=== PATIENT | male | born 1980 | race Caucasian/White ===

== ENCOUNTER 2021-06-07 03:03 | Emergency (ER) | payer OTHER ==
[~2021-06-07] VITALS: Ht 182.9 cm; Wt 105.0 kg
[2021-06-07 03:09] VITALS: BP 142/97
--- NOTE | 2021-06-07 04:09 | NUR ---
AT TO DISCUSS PLAN OF CARE.
== END 2021-06-07 04:18 | disposition home or self-care (01) ==
LOC: ED 03:15
DX: Z20.5 Contact with and (suspected) exposure to viral hepatitis (principal)
CPT/HCPCS: 36415; 86705; 86706; 86803; 87340; 87806; 99283; G0475